=== PATIENT | female | born 1980 | race Two or more races ===

== ENCOUNTER 2023-03-26 08:06 | Outpatient (CLI) | payer OTHER | END 2023-03-26 08:13 | disposition home or self-care (01) | LOC: PRENATAL 08:06 | PROVIDERS: ATTEND Obstetrics & Gynecology Maternal & Fetal Medicine | DX: O35.9XX0 Maternal care for (suspected) fetal abnormality and damage, unspecified, not applicable or unspecified (principal); O35.3XX0 Maternal care for (suspected) damage to fetus from viral disease in mother, not applicable or unspecified; O44.00 Complete placenta previa NOS or without hemorrhage, unspecified trimester; O09.529 Supervision of elderly multigravida, unspecified trimester; O28.1 Abnormal biochemical finding on antenatal screening of mother; Z3A.20 20 weeks gestation of pregnancy ==

== ENCOUNTER 2023-05-27 08:51 | Outpatient (CLI) | payer OTHER | END 2023-05-27 08:52 | disposition home or self-care (01) | LOC: PRENATAL 08:51 | PROVIDERS: ATTEND Obstetrics & Gynecology Maternal & Fetal Medicine | DX: O26.849 Uterine size-date discrepancy, unspecified trimester (principal); O09.529 Supervision of elderly multigravida, unspecified trimester; O28.1 Abnormal biochemical finding on antenatal screening of mother; O99.019 Anemia complicating pregnancy, unspecified trimester; Z3A.28 28 weeks gestation of pregnancy ==